=== PATIENT | female | born 1965 | race Caucasian/White ===

== ENCOUNTER 2017-05-26 21:17 | Emergency (ER) | payer BC ==
[~2017-05-26] VITALS: Ht 172.7 cm; Wt 63.5 kg
[~2017-05-26 21:17] MED LIST: ASPI-869 PO; CARV6.25 PO; DIGO125T PO; FURO-151 PO; NORE5TAB8 PO; POTA10TA10 PO; SIMV10TA6 PO
[2017-05-26] MEDS ORDERED: LISI10TA5 PO (21:38)
[2017-05-26] MEDS ORDERED: WARF2TAB57 PO ×2 (21:38)
[2017-05-26] MEDS ORDERED: ONDANSETRON ODT 4 MG TAB.RAPDIS SL ONE (21:45)
[2017-05-26] MEDS ORDERED: AZITHROMYCIN 250 MG TABLET PO ONE (21:45)
[2017-05-26] MEDS ORDERED: METRONIDAZOLE 500 MG TABLET PO ONE (21:45)
[2017-05-26] MEDS ORDERED: ONDANSETRON ODT 4 MG TAB.RAPDIS ONE (21:57)
[2017-05-26] MEDS ORDERED: AZITHROMYCIN 250 MG TABLET ONE (21:57)
[2017-05-26] MEDS ORDERED: METRONIDAZOLE 500 MG TABLET ONE (21:58)
[2017-05-26] MEDS ORDERED: SULFAMETH/TRIMETH 800/160 MG TABLET PO ONE (22:00)
[2017-05-26] MEDS ORDERED: SULFAMETH/TRIMETH 800/160 MG TABLET ONE (22:00)
--- NOTE | 2017-05-26 22:02 | NUR ---
Patient discharged to home in stable conditon. Written and verbal after care instructions given. Patient verbalizes understanding of instructions. Ambulated from ER with stable gait. All belongings with patient.
[2017-05-26 22:04] VITALS: BP 138/97
== END 2017-05-26 22:07 | disposition home or self-care (01) ==
LOC: ER 21:17
DX: H61.22 Impacted cerumen, left ear (principal); K08.89 Other specified disorders of teeth and supporting structures; I11.0 Hypertensive heart disease with heart failure; I50.9 Heart failure, unspecified; Z86.73 Personal history of transient ischemic attack (TIA), and cerebral infarction without residual deficits; Z88.0 Allergy status to penicillin; F17.200 Nicotine dependence, unspecified, uncomplicated; Z79.01 Long term (current) use of anticoagulants; Z76.1 Encounter for health supervision and care of foundling; Z71.6 Tobacco abuse counseling
CPT/HCPCS: 99284; 99406; A4663; Q0144; Q0162

== ENCOUNTER 2017-05-28 10:51 | Emergency (ER) | payer BC ==
[~2017-05-28] VITALS: Ht 170.2 cm; Wt 66.2 kg
[~2017-05-28 10:51] MED LIST changes: -FURO-151 PO; +LISI10TA5 PO; -NORE5TAB8 PO; -POTA10TA10 PO; +WARF2TAB57 PO
--- NOTE | 2017-05-28 11:37 | NUR ---
MSE COMPLETED. PT D/C'D HOME, ACI GIVEN. PT TOOK ALL BELONGINGS.
[2017-05-28 11:38] VITALS: BP 110/74
== END 2017-05-28 11:39 | disposition home or self-care (01) ==
LOC: ER 10:51
DX: L08.9 Local infection of the skin and subcutaneous tissue, unspecified (principal); I11.0 Hypertensive heart disease with heart failure; I50.9 Heart failure, unspecified; J44.9 Chronic obstructive pulmonary disease, unspecified; Z86.73 Personal history of transient ischemic attack (TIA), and cerebral infarction without residual deficits; Z88.0 Allergy status to penicillin; F17.200 Nicotine dependence, unspecified, uncomplicated; Z79.01 Long term (current) use of anticoagulants; Z79.82 Long term (current) use of aspirin
CPT/HCPCS: A4663

== ENCOUNTER 2017-08-27 08:35 | Emergency (ER) | payer BC ==
[~2017-08-27] VITALS: Ht 170.2 cm; Wt 63.5 kg
[2017-08-27] MEDS ORDERED: DOXYCYCLINE HYCLATE 100 MG TABLET PO ONE (09:53)
--- NOTE | 2017-08-27 10:03 | NUR ---
Patient discharged to home in stable conditon. Written and verbal after care instructions given. Patient verbalizes understanding of instructions.pt walks in steady gait, no sign of distress, accompanied by family member.
[2017-08-27 10:04] VITALS: BP 132/88
[2017-08-27] MEDS ORDERED: DOXYCYCLINE HYCLATE 100 MG TABLET ONE (10:15)
== END 2017-08-27 10:15 | disposition home or self-care (01) ==
LOC: ER 08:35
DX: J40 Bronchitis, not specified as acute or chronic (principal); F17.200 Nicotine dependence, unspecified, uncomplicated; Z79.82 Long term (current) use of aspirin; Z79.01 Long term (current) use of anticoagulants; I50.9 Heart failure, unspecified; I11.0 Hypertensive heart disease with heart failure; J44.9 Chronic obstructive pulmonary disease, unspecified; Z86.73 Personal history of transient ischemic attack (TIA), and cerebral infarction without residual deficits; Z88.0 Allergy status to penicillin
CPT/HCPCS: 71010; 87400; A4663

== ENCOUNTER 2019-12-16 12:36 | Emergency (ER) | payer SELFPAY ==
[~2019-12-16] VITALS: Ht 170.2 cm; Wt 65.8 kg
[2019-12-16] MEDS ORDERED: OLANZAPINE 10 MG VIAL IM ONE (12:53)
--- NOTE | 2019-12-16 13:49 | NUR ---
Patient discharged to home in stable conditon. Written and verbal after care instructions given. Patient verbalizes understanding of instructions. Patient ambulated with stable gait.
[2019-12-16 13:51] VITALS: BP 119/73
== END 2019-12-16 13:52 | disposition home or self-care (01) ==
LOC: ER 12:36
DX: J02.0 Streptococcal pharyngitis (principal); F17.200 Nicotine dependence, unspecified, uncomplicated; J44.9 Chronic obstructive pulmonary disease, unspecified; I11.0 Hypertensive heart disease with heart failure; I50.9 Heart failure, unspecified; Z79.82 Long term (current) use of aspirin; Z79.899 Other long term (current) drug therapy; Z79.01 Long term (current) use of anticoagulants; Z88.0 Allergy status to penicillin; Z88.1 Allergy status to other antibiotic agents
CPT/HCPCS: 36415; 86403; A4663; J2358

== ENCOUNTER 2022-04-01 22:41 | Emergency (ER) | payer MEDICAID, OTHER ==
[~2022-04-01] VITALS: Ht 170.2 cm; Wt 63.0 kg
[~2022-04-01 22:41] MED LIST changes: +LISI10TA29 PO; -LISI10TA5 PO; -SIMV10TA6 PO; +SIMV10TA98 PO
--- NOTE | 2022-04-01 23:00 | NUR ---
Dr. Hansen at bedside for MSE.
[2022-04-01 23:33] LABS: *BILIRUBIN,URIN NEGATIVE (NEGATIVE); *BLOOD, URINE 1+ (NEGATIVE); *CLARITY,URINE SLIGHTLY CLOUDY (CLEAR); *COLOR,URINE YELLOW (YELLOW); *KETONES,URINE NEGATIVE (NEGATIVE); *UROBILINOGEN,URINE 0.2 E.U./dl (NORMAL); LEUKOCYTE ESTERASE ,URINE 2+ (NEGATIVE); NITRITE, URINE NEGATIVE (NEGATIVE); PH,URINE 5.5 (5.0-8.0); UGLUCOSE NEGATIVE (NEGATIVE)
[2022-04-01 23:51] LABS: BACTERIA,URINE FEW /HPF (NONE SEEN); SQUAMOUS EPITHELIAL CELL,UR MODERATE /HPF (NONE SEEN)
[2022-04-01] MEDS ORDERED: CEphaleXIN 500 MG CAPSULE ONE (23:59)
[2022-04-01] MEDS ORDERED: IBUPROFEN 600 MG TABLET ONE (23:59)
[2022-04-02] MEDS ORDERED: IBUPROFEN 600 MG TABLET PO ONE
[2022-04-02] MEDS ORDERED: CEFTRIAXONE 1 G VIAL ONE
[2022-04-02] MEDS ORDERED: CEphaleXIN 500 MG CAPSULE PO ONE
[2022-04-02] MEDS ORDERED: LIDOCAINE HCL 1% 20 ML VIAL ONE (00:01)
[2022-04-02] MEDS ORDERED: CEPH500C2 PO (00:13)
[2022-04-02] MEDS ORDERED: CEFTRIAXONE 1 G VIAL IM ONE (00:15)
--- NOTE | 2022-04-02 00:16 | NUR ---
Patient does not wish to proceed with medical care recommended by Dr. Hansen. Patient given information related to possible complications, up to and including , which could occur as a result of leaving the hospital at this time. Patient verbalizes understanding of risks involved due to leaving against medical advice. Patient has signed AMA form.
[2022-04-02 00:17] VITALS: BP 141/93
== END 2022-04-02 00:17 | disposition left against medical advice (07) ==
LOC: ER 22:43
DX: M54.50 Low back pain, unspecified (principal); R82.81 Pyuria; Z87.442 Personal history of urinary calculi; Z53.29 Procedure and treatment not carried out because of patient's decision for other reasons; Z88.0 Allergy status to penicillin; I11.0 Hypertensive heart disease with heart failure; I50.9 Heart failure, unspecified; Z79.899 Other long term (current) drug therapy; J44.9 Chronic obstructive pulmonary disease, unspecified; Z86.73 Personal history of transient ischemic attack (TIA), and cerebral infarction without residual deficits; Z79.01 Long term (current) use of anticoagulants
CPT/HCPCS: 81001; 87086; 96372; 99283; J0696; J3490

== ENCOUNTER 2024-11-26 13:36 | Emergency (ER) | payer BC, MEDICAID, OTHER ==
[~2024-11-26 13:36] MED LIST changes: +CEPH500C2 PO
== END 2024-11-26 14:20 | disposition left against medical advice (07) ==
LOC: ER 13:36
DX: J34.89 Other specified disorders of nose and nasal sinuses (principal); I11.0 Hypertensive heart disease with heart failure; I50.9 Heart failure, unspecified; J44.9 Chronic obstructive pulmonary disease, unspecified; F17.200 Nicotine dependence, unspecified, uncomplicated; Z53.21 Procedure and treatment not carried out due to patient leaving prior to being seen by health care provider; Z79.82 Long term (current) use of aspirin; Z79.899 Other long term (current) drug therapy; Z86.73 Personal history of transient ischemic attack (TIA), and cerebral infarction without residual deficits; Z88.0 Allergy status to penicillin; Z88.7 Allergy status to serum and vaccine; Z88.8 Allergy status to other drugs, medicaments and biological substances

== ENCOUNTER 2025-08-12 18:55 | Inpatient (IN) | payer MEDICAID ==
[~2025-08-12] VITALS: Ht 172.7 cm; Wt 63.5 kg
[2025-08-12] MEDS ORDERED: KETOROLAC TROMETHAMINE 15 MG INJ ONE (20:01)
[2025-08-12] MEDS ORDERED: ONDANSETRON 4 MG/2 ML VIAL ONE (20:01)
[2025-08-12 20:06] LABS: PLATELET COUNT (AUTO) 149 K/uL (179-408); RED BLOOD CELL COUNT(AUTO) 4.54 MIL/uL (3.63-4.92); RED CELL DISTRIBUTION WIDTH 13.6 % (12.3-17.7); WHITE BLOOD COUNT (AUTO) 8.0 K/uL (3.8-11.8)
[2025-08-12] MEDS: ONDANSETRON 4 MG/2 ML VIAL IV ONE (20:06)
[2025-08-12] MEDS: KETOROLAC TROMETHAMINE 15 MG INJ IVP ONE (20:07)
[2025-08-12 20:14] LABS: CREATININE 0.9 mg/dL (0.6-1.3); SODIUM SERUM 141.0 mmol/L (136-145); UREA NITROGEN, BLOOD 13.0 mg/dL (7-18)
[2025-08-12] MEDS ORDERED: IV NORMAL SALINE 250 ML IV ONE (20:19)
[2025-08-12] MEDS ORDERED: SWABABLE VALVE TRANSFER SET EA MC ONE (20:20)
[2025-08-12] MEDS ORDERED: IOHEXOL 300MG/ML 100 ML INFUS..BTL ONE (20:20)
[2025-08-12 20:21] LABS: ASPARTATE AMINOTRANSFERASE 16.0 U/L (15-37); TOTAL PROTEIN, SERUM 7.3 g/dL (6.4-8.2)
[2025-08-12] MEDS ORDERED: HYDROMORPHONE 1 MG/1 ML DISP.SYRIN ONE (20:26)
[2025-08-12] MEDS: HYDROMORPHONE 1 MG/1 ML DISP.SYRIN IV ONE (20:32)
[2025-08-12] MEDS: METOCLOPRAMIDE HCL 10 MG/2 ML VIAL IV ONE (20:49)
[2025-08-12] MEDS: diphenhydrAMINE 50 MG/1 ML VIAL IV ONE (20:49)
[2025-08-12] MEDS ORDERED: METOCLOPRAMIDE HCL 10 MG/2 ML VIAL ONE (20:49)
[2025-08-12] MEDS ORDERED: diphenhydrAMINE 50 MG/1 ML VIAL ONE (20:49)
[2025-08-12] MEDS: METRONIDAZOLE 500 MG/NS 100 ML PIGGYBACK IV ONE (21:00)
[2025-08-12] MEDS ORDERED: METRONIDAZOLE 500 MG/NS 100ML 100 ML IV ONE (21:32)
[2025-08-13 01:15] VITALS: BP 138/82
[2025-08-13] MEDS ORDERED: ACETAMINOPHEN 650 MG SUPP.RECT RC PRN (01:15)
[2025-08-13 03:30] VITALS: BP 112/68; TEMP 98; O2SAT 93
[2025-08-13] MEDS: KETOROLAC TROMETHAMINE 15 MG INJ IVP PRN (04:09)
[2025-08-13] MEDS ORDERED: METRONIDAZOLE 500 MG/NS 100ML 100 ML IV ONE (06:16)
[2025-08-13] MEDS: METRONIDAZOLE 500 MG/NS 100ML 500 MG in PREMIXED 1 EACH IV SCH (06:24)
[2025-08-13 06:44] LABS: PLATELET COUNT (AUTO) 138 K/uL (179-408); RED BLOOD CELL COUNT(AUTO) 4.47 MIL/uL (3.63-4.92); RED CELL DISTRIBUTION WIDTH 13.6 % (12.3-17.7); WHITE BLOOD COUNT (AUTO) 7.4 K/uL (3.8-11.8)
[2025-08-13 07:11] LABS: CREATININE 1.1 mg/dL (0.6-1.3); SODIUM SERUM 140.0 mmol/L (136-145); UREA NITROGEN, BLOOD 16.0 mg/dL (7-18)
[2025-08-13] MEDS ORDERED: WARFARIN SODIUM 2 MG TABLET PO SCH ×2 (07:45)
[2025-08-13] MEDS ORDERED: DOSING PER PHARMACY-ENOXAPARIN XX PRN (09:00)
[2025-08-13] MEDS: ONDANSETRON 4 MG/2 ML VIAL IV PRN (09:00)
[2025-08-13] MEDS: PANTOPRAZOLE SODIUM 40 MG VIAL IV SCH (09:00)
[2025-08-13] MEDS ORDERED: ASPIRIN EC 325 MG TABLET.DR PO SCH (09:00)
[2025-08-13] MEDS: CARVEDILOL 6.25 MG TABLET PO SCH (09:12)
[2025-08-13] MEDS ORDERED: KETOROLAC TROMETHAMINE 15 MG INJ IVP PRN (09:15)
[2025-08-13] MEDS: ENOXAPARIN SODIUM 60 MG/0.6 ML DISP.SYRIN SQ SCH (09:16)
[2025-08-13] MEDS: LORAZEPAM 1 MG TABLET PO PRN (09:16)
[2025-08-13] MEDS ORDERED: APIX5TAB PO (11:14)
[2025-08-13] MEDS ORDERED: ACET-2030 PO (11:15)
[2025-08-13] MEDS: LISINOPRIL 10 MG TABLET PO SCH ×2 (11:57→20:39)
[2025-08-13 12:00] VITALS: BP 117/54; TEMP 97.8; O2SAT 95
[2025-08-13] MEDS: DIGOXIN 125 MCG TABLET PO SCH (14:58)
[2025-08-13 16:00] VITALS: BP 120/41; TEMP 97.6; O2SAT 95
[2025-08-13] MEDS: ACETAMINOPHEN 325 MG TABLET PO PRN (19:01)
[2025-08-13 19:10] VITALS: BP 156/72; TEMP 98.7
[2025-08-13] MEDS ORDERED: SIMVASTATIN 10 MG TABLET PO SCH (21:00)
[2025-08-14 05:54] VITALS: BP 124/74; TEMP 98.7; O2SAT 94
[2025-08-14 06:51] LABS: PLATELET COUNT (AUTO) 126 K/uL (179-408); RED BLOOD CELL COUNT(AUTO) 4.12 MIL/uL (3.63-4.92); RED CELL DISTRIBUTION WIDTH 13.6 % (12.3-17.7); WHITE BLOOD COUNT (AUTO) 6.1 K/uL (3.8-11.8)
[2025-08-14 07:07] LABS: CREATININE 1.0 mg/dL (0.6-1.3); SODIUM SERUM 140.0 mmol/L (136-145); UREA NITROGEN, BLOOD 21.0 mg/dL (7-18)
[2025-08-14 10:32] VITALS: BP 138/51; TEMP 98.3; O2SAT 95
[2025-08-14] MEDS ORDERED: CIPR-262 PO (10:40)
[2025-08-14] MEDS ORDERED: METR-147 PO (10:40)
== END 2025-08-14 11:45 | disposition home or self-care (01) ==
LOC: ER 18:55 → MEDSURG3 08-13 00:45
PROVIDERS: ADMIT Registered Nurse Psychiatric/Mental Health; ATTEND Internal Medicine
DX: K80.00 Calculus of gallbladder with acute cholecystitis without obstruction (principal); I31.39 Other pericardial effusion (noninflammatory); I27.20 Pulmonary hypertension, unspecified; I48.0 Paroxysmal atrial fibrillation; Z79.01 Long term (current) use of anticoagulants; F41.9 Anxiety disorder, unspecified; F17.210 Nicotine dependence, cigarettes, uncomplicated; I25.2 Old myocardial infarction; I25.10 Atherosclerotic heart disease of native coronary artery without angina pectoris; I11.9 Hypertensive heart disease without heart failure; Z86.73 Personal history of transient ischemic attack (TIA), and cerebral infarction without residual deficits; Z79.899 Other long term (current) drug therapy; Z79.82 Long term (current) use of aspirin; Z88.0 Allergy status to penicillin; I48.20 Chronic atrial fibrillation, unspecified
CPT/HCPCS: 36415; 71045; 83690; 83735; 84100; 85025; 85610; 93005; 93307; G0378; J1171; J1200; J1650; J1885; J1956; J2405; J2470; J2765; J3490; J7040; Q9967